=== PATIENT | male | born 1970 | race American Indian/Alaskan Native ===

== ENCOUNTER 2018-03-08 01:12 | Emergency (ER) | payer OTHER ==
[2018-03-08 02:16] LABS: Basophils % (Auto) 0.4 % (0.0-1.8); Eosinophils # (Auto) 0.1 K/mm3 (0.0-0.4); Eosinophils % (Auto) 1.9 % (0.0-4.3); Lymphocytes # (Auto) 2.2 K/mm3 (1.2-5.4); Lymphocytes % (Auto) 37.8 % (13.4-35.0); Mean Corpuscular HGB Conc 31 % (32-34); Mean Corpuscular Volume 81 fl (84-94); Monocytes # (Auto) 0.9 K/mm3 (0.0-0.8); Monocytes % (Auto) 14.8 % (0.0-7.3); Platelet Count 209 K/mm3 (140-440); Red Blood Count 5.19 M/mm3 (3.65-5.03); Red Cell Distribution Width 14.8 % (13.2-15.2)
[2018-03-08 02:21] LABS: Hematocrit 41.9 % (35.5-45.6); Hemoglobin 12.9 gm/dl (11.8-15.2); Mean Corpuscular Hemoglobin 25 pg (28-32)
[2018-03-08 02:36] LABS: BUN/Creatinine Ratio 18; Blood Urea Nitrogen 18 mg/dL (9-20); Calcium 9.1 mg/dL (8.4-10.2); Hemolysis Index 9
[2018-03-08 03:46] LABS: Bilirubin,Urine NEG (Negative); Blood,Urine NEG (Negative); Calcium Oxalate Crystals,Urine 1+; Color,Urine Yellow (Yellow); Mucus,Urine 1+ /HPF
[2018-03-08 03:54] LABS: Amphetamine Screen,Urine PRESUMPTIVE NEGATIVE; Benzodiazepines Screen,Urine PRESUMPTIVE NEGATIVE; Methadone Screen,Urine PRESUMPTIVE NEGATIVE; Opiate Screen,Urine PRESUMPTIVE NEGATIVE
[2018-03-08 04:12] LABS: Cannabinoid Screen,Urine PRESUMPTIVE POSITIVE; Cocaine Screen,Urine PRESUMPTIVE POSITIVE
--- NOTE | 2018-03-08 07:28 | Emergency Department Report ---
ED Psych HPI - General Chief Complaint: Psych Stated Complaint: HOMICIDAL Time Seen by Provider: 03/08/18 06:24 Source: patient Mode of arrival: Ambulatory Limitations: No Limitations - History of Present Illness Initial Comments: 47-year-old male with a past medical history bipolar disorder presents to the house complaining of feeling like hurting people today he resides with an history and additional home. He denies wanting to kill them or himself. He denies hearing voices. He makes to smoke cocaine. He doesn't have any physical complaints other than some nasal congestion. No complaints of fever or pain. Patient admits to noncompliance with his Depakote and Remeron x 1 month. He states he is supposed to take Depakote 1000 mg twice a day Remeron 15 mg daily at bedtime. - Related Data Home Medications Medication Instructions Recorded Confirmed Last Taken Divalproex [Matt YARBROUGH] 1,000 mg PO BID 03/08/18 03/08/18 Unknown Remeron 15 mg PO HS 03/08/18 03/08/18 Unknown Allergies Allergy/AdvReac Type Severity Reaction Status Date / Time No Known Allergies Allergy Verified 03/08/18 01:46 ED Review of Systems ROS: Stated complaint: HOMICIDAL Other details as noted in HPI Comment: All other systems reviewed and negative ED Past Medical Hx - Past Medical History Hx Psychiatric Treatment: Yes (bipolar disorder) - Surgical History Past Surgical History?: No - Social History Smoking Status: Current Some Day Smoker Substance Use Type: Alcohol, Cocaine, Marijuana - Medications Home Medications: Home Medications Medication Instructions Recorded Confirmed Last Taken Type Divalproex [Matt YARBROUGH] 1,000 mg PO BID 03/08/18 03/08/18 Unknown History Remeron 15 mg PO HS 03/08/18 03/08/18 Unknown History ED Physical Exam - General Limitations: No Limitations - Other Other exam information: General: No limitations, patient is alert in no acute distress Head exam: Atraumatic, normocephalic Eyes exam: Normal appearance, pupils equal reactive to light ENT: Moist mucous membrane, normal oropharynx Neck exam: Normal inspection, full range of motion, no meningismus nontender Respiratory exam: Clear to auscultation bilateral, no wheezes, rales, crackles Cardiovascular: Normal rate and rhythm, normal heart sounds Abdomen: Soft, nondistended, and nontender, with normal bowel sounds, no rebound, or guarding Extremity: Full range of motion Back: Normal Inspection, full range of motion, no tenderness Neurologic: Alert, oriented x3, cranial nerves intact, no motor or sensory deficit Psychiatric: Agitated, poor eye contact Skin: Warm, dry, intact ED Course Vital Signs 03/08/18 01:46 Temperature 98.5 F Pulse Rate 77 Respiratory 16 Rate Blood Pressure 117/70 O2 Sat by Pulse 98 Oximetry ED Medical Decision Making - Lab Data Result diagrams: 03/08/18 01:54 03/08/18 01:54 Lab Results 03/08/18 03/08/18 03/08/18 Range/Units 01:54 01:54 01:54 WBC (4.5-11.0) K/mm3 RBC (3.65-5.03) M/mm3 Hgb (11.8-15.2) gm/dl Hct (35.5-45.6) % MCV (84-94) fl MCH (28-32) pg MCHC (32-34) % RDW (13.2-15.2) % Plt Count (140-440) K/mm3 Lymph % (Auto) (13.4-35.0) % [place] % (Auto) (0.0-7.3) % Eos % (Auto) (0.0-4.3) % Baso % (Auto) (0.0-1.8) % Lymph # (1.2-5.4) K/mm3 [place] # (0.0-0.8) K/mm3 Eos # (0.0-0.4) K/mm3 Baso # (0.0-0.1) K/mm3 Seg Neutrophils % (40.0-70.0) % Seg Neutrophils # (1.8-7.7) K/mm3 Sodium 142 (137-145) mmol/L Potassium 3.8 (3.6-5.0) mmol/L Chloride 102.0 (98-107) mmol/L Carbon Dioxide 26 (22-30) mmol/L Anion Gap 18 mmol/L BUN 18 (9-20) mg/dL Creatinine 1.0 (0.8-1.5) mg/dL Estimated GFR > 60 ml/min BUN/Creatinine Ratio 18 % Glucose 120 H (75-100) mg/dL Calcium 9.1 (8.4-10.2) mg/dL Total Creatine Kinase (55-170) units/L Urine Color (Yellow) Urine Turbidity (Clear) Urine pH (5.0-7.0) Ur Specific [place] (1.003-1.030) Urine Protein (Negative) mg/dL Urine Glucose (UA) (Negative) mg/dL Urine Ketones (Negative) mg/dL Urine Blood (Negative) Urine Nitrite (Negative) Urine Bilirubin (Negative) Urine Urobilinogen (<2.0) mg/dL Ur Leukocyte Esterase (Negative) Urine WBC (Auto) (0.0-6.0) /HPF Urine RBC (Auto) (0.0-6.0) /HPF U Epithel Cells (Auto) (0-13.0) /HPF Calcium Oxalate Crystal Urine Mucus /HPF Salicylates < 0.3 L (2.8-20.0) mg/dL Urine Opiates Screen Urine Methadone Screen Acetaminophen < 5.0 L (10.0-30.0) ug/mL Ur Barbiturates Screen Valproic Acid (50-100) ug/mL Ur Phencyclidine Scrn Ur Amphetamines Screen U Benzodiazepines Scrn Urine Cocaine Screen U Marijuana (THC) Screen Drugs of Abuse Note Plasma/Serum Alcohol (0-0.07) % 03/08/18 03/08/18 03/08/18 Range/Units 01:54 01:54 03:27 WBC 5.9 (4.5-11.0) K/mm3 RBC 5.19 H (3.65-5.03) M/mm3 Hgb 12.9 (11.8-15.2) gm/dl Hct 41.9 (35.5-45.6) % MCV 81 L (84-94) fl MCH 25 L (28-32) pg MCHC 31 L (32-34) % RDW 14.8 (13.2-15.2) % Plt Count 209 (140-440) K/mm3 Lymph % (Auto) 37.8 H (13.4-35.0) % [place] % (Auto) 14.8 H (0.0-7.3) % Eos % (Auto) 1.9 (0.0-4.3) % Baso % (Auto) 0.4 (0.0-1.8) % Lymph # 2.2 (1.2-5.4) K/mm3 [place] # 0.9 H (0.0-0.8) K/mm3 Eos # 0.1 (0.0-0.4) K/mm3 Baso # 0.0 (0.0-0.1) K/mm3 Seg Neutrophils % 45.1 (40.0-70.0) % Seg Neutrophils # 2.7 (1.8-7.7) K/mm3 Sodium (137-145) mmol/L Potassium (3.6-5.0) mmol/L Chloride (98-107) mmol/L Carbon Dioxide (22-30) mmol/L Anion Gap mmol/L BUN (9-20) mg/dL Creatinine (0.8-1.5) mg/dL Estimated GFR ml/min BUN/Creatinine Ratio % Glucose (75-100) mg/dL Calcium (8.4-10.2) mg/dL Total Creatine Kinase (55-170) units/L Urine Color Yellow (Yellow) Urine Turbidity Clear (Clear) Urine pH 5.0 (5.0-7.0) Ur Specific [place] 1.034 H (1.003-1.030) Urine Protein 30 mg/dl (Negative) mg/dL Urine Glucose (UA) Neg (Negative) mg/dL Urine Ketones Tr (Negative) mg/dL Urine Blood Neg (Negative) Urine Nitrite Neg (Negative) Urine Bilirubin Neg (Negative) Urine Urobilinogen 4.0 (<2.0) mg/dL Ur Leukocyte Esterase Neg (Negative) Urine WBC (Auto) 3.0 (0.0-6.0) /HPF Urine RBC (Auto) 3.0 (0.0-6.0) /HPF U Epithel Cells (Auto) < 1.0 (0-13.0) /HPF Calcium Oxalate Crystal 1+ Urine Mucus 1+ /HPF Salicylates (2.8-20.0) mg/dL Urine Opiates Screen Urine Methadone Screen Acetaminophen (10.0-30.0) ug/mL Ur Barbiturates Screen Valproic Acid (50-100) ug/mL Ur Phencyclidine Scrn Ur Amphetamines Screen U Benzodiazepines Scrn Urine Cocaine Screen U Marijuana (THC) Screen Drugs of Abuse Note Plasma/Serum Alcohol < 0.01 (0-0.07) % 03/08/18 03/08/18 03/08/18 Range/Units 03:27 06:20 06:20 WBC (4.5-11.0) K/mm3 RBC (3.65-5.03) M/mm3 Hgb (11.8-15.2) gm/dl Hct (35.5-45.6) % MCV (84-94) fl MCH (28-32) pg MCHC (32-34) % RDW (13.2-15.2) % Plt Count (140-440) K/mm3 Lymph % (Auto) (13.4-35.0) % [place] % (Auto) (0.0-7.3) % Eos % (Auto) (0.0-4.3) % Baso % (Auto) (0.0-1.8) % Lymph # (1.2-5.4) K/mm3 [place] # (0.0-0.8) K/mm3 Eos # (0.0-0.4) K/mm3 Baso # (0.0-0.1) K/mm3 Seg Neutrophils % (40.0-70.0) % Seg Neutrophils # (1.8-7.7) K/mm3 Sodium (137-145) mmol/L Potassium (3.6-5.0) mmol/L Chloride (98-107) mmol/L Carbon Dioxide (22-30) mmol/L Anion Gap mmol/L BUN (9-20) mg/dL Creatinine (0.8-1.5) mg/dL Estimated GFR ml/min BUN/Creatinine Ratio % Glucose (75-100) mg/dL Calcium (8.4-10.2) mg/dL Total Creatine Kinase 298 H (55-170) units/L Urine Color (Yellow) Urine Turbidity (Clear) Urine pH (5.0-7.0) Ur Specific [place] (1.003-1.030) Urine Protein (Negative) mg/dL Urine Glucose (UA) (Negative) mg/dL Urine Ketones (Negative) mg/dL Urine Blood (Negative) Urine Nitrite (Negative) Urine Bilirubin (Negative) Urine Urobilinogen (<2.0) mg/dL Ur Leukocyte Esterase (Negative) Urine WBC (Auto) (0.0-6.0) /HPF Urine RBC (Auto) (0.0-6.0) /HPF U Epithel Cells (Auto) (0-13.0) /HPF Calcium Oxalate Crystal Urine Mucus /HPF Salicylates (2.8-20.0) mg/dL Urine Opiates Screen Presumptive negative Urine Methadone Screen Presumptive negative Acetaminophen (10.0-30.0) ug/mL Ur Barbiturates Screen Presumptive negative Valproic Acid 5.2 L (50-100) ug/mL Ur Phencyclidine Scrn Presumptive negative Ur Amphetamines Screen Presumptive negative U Benzodiazepines Scrn Presumptive negative Urine Cocaine Screen Presumptive positive U Marijuana (THC) Screen Presumptive positive Drugs of Abuse Note Disclamer Plasma/Serum Alcohol (0-0.07) % - Medical Decision Making pt medically cleared 1013, transfer form signed pending acceptance most recently reported meds and doses will be continued - Differential Diagnosis bipolar, drug abuse, medication noncompliance Critical Care Time: No Critical care attestation.: If time is entered above; I have spent that time in minutes in the direct care of this critically ill patient, excluding procedure time. ED Disposition Clinical Impression: Bipolar disorder, Noncompliance with medication regimen, At risk for violence to others, Cocaine abuse, Medical clearance for psychiatric admission Disposition: DC/TX-65 PSY HOSP/PSY UNIT Is pt being admited?: No Does the pt Need Aspirin: No Condition: Stable Time of Disposition: 07:28
[2018-03-08] MEDS ORDERED: REMERON PO SCH (22:00)
[2018-03-09 10:36] LABS: Alanine Aminotransferase 19 units/L (7-56); Lipase 22 units/L (13-60)
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
[2018-03-09] MEDS ORDERED: GEODON IM ONE (19:40)
[2018-03-09] MEDS ORDERED: GEODON IM PRN (20:02)
--- NOTE | 2018-03-10 12:17 | Progress Note ---
Subjective - Reason for Consult Consult date: 03/10/18 Reason for consult: Psychiatry Follow-up - Chief Complaint Chief complaint: "I am good" 47-year-old AA male presenting to the ER for feeling like he wan to hurt people at his transitional home. Today the patient is still irritable during the assessment. He stated that he wasn't having a good day. He stated that he does not want to hurt anyone at this time. He denies SI/HI's and AVH's. He denies any side effects of his medication. Per the notes, there were some behavioral disturbance by the patient overnight. Mental Status Exam - Vital signs Last Vital Signs Temp 99.1 F 03/09/18 19:00 Pulse 95 H 03/09/18 19:00 Resp 18 03/09/18 19:00 BP 119/73 03/09/18 19:00 Pulse Ox 97 03/09/18 19:00 - Exam Narrative exam: MSE: Appearance: calm Behavior: regular eye contact Speech: pressured speech Mood: irritable Affect: congruent to mood Thought Process: circumstantial Thought Content: denies SI/HI's and AVH's Motor Activity: sitting up in bed Cognition: A/O x 3 Insight: variable Judgment: variable Assessment and Plan Impression: Unspecified Mood DO. Cannabis Use DO. Substance Use DO (cocaine). Possibly manic. Today the patient is still irritable during the assessment. DDx: Bipolar DO, R/O Substance Induced Mood DO Recommendation/Plan: Continue 1013 with placement to inpatient psy services. Continue home medication Depakote 1000 mg PO BID mood.
[2018-03-10 20:50] VITALS: BP 111/71
[2018-03-10] MEDS ORDERED: WATER FOR INJ (PF) ONE (22:19)
[2018-03-10] MEDS ORDERED: REMERON PO ONE (23:22)
--- NOTE | 2018-03-11 12:22 | Progress Note ---
Subjective - Reason for Consult Consult date: 03/11/18 Reason for consult: Psychiatry Follow-up - Chief Complaint Chief complaint: "I feel much better" 47-year-old AA male presenting to the ER for wanting to hurt people at his transitional home. Today the patient is calm and cooperative during the assessment. He stated that he plan to stay compliant with his medications and appts for outpatient psy services. Per the patient, he stated having an appt with his psychiatrist at [facility] yesterday (03/10/2018). He stated that he is seen at [facility] for all his healthcare needs. He denies SI/HI's and AVH's. The patient stated being homeless. Mental Status Exam - Vital signs Last Vital Signs Temp 98.7 F 03/10/18 20:49 Pulse 74 03/10/18 20:49 Resp 17 03/10/18 20:49 BP 111/71 03/10/18 20:49 Pulse Ox 99 03/10/18 20:49 - Exam Narrative exam: MSE: Appearance: calm, cooperative Behavior: regular eye contact Speech: regular rate and tone Mood: "I feel fine" Affect: congruent to mood Thought Process: logical Thought Content: denies SI/HI's and AVH's Motor Activity: sitting up in bed Cognition: A/O x 3 Insight: appropriate Judgment: appropriate Assessment and Plan Impression: Unspecified Mood DO. Cannabis Use DO. Substance Use DO (cocaine). Celine has resolved. Today the patient is calm and cooperative during the assessment. The patient is no threat to others. DDx: Bipolar DO, R/O Substance Induced Mood DO Recommendation/Plan: The plan was to rescind the patient's 1013 today, but he was transferred to [facility] per an error. Case Mgmt involvement, the patient is homeless. The patient can follow up with [facility] for outpatient psy services. [facility] was informed of the patient's discharge plan.
[2018-03-11] MEDS ORDERED: REMERON PO SCH (22:00)
== END 2018-03-11 12:42 ==
LOC: EEVIPCON 01:12 → ED 01:12
DX: F31.9 Bipolar disorder, unspecified (principal); R45.6 Violent behavior; R09.81 Nasal congestion; F14.10 Cocaine abuse, uncomplicated; F17.200 Nicotine dependence, unspecified, uncomplicated; F12.10 Cannabis abuse, uncomplicated; F39 Unspecified mood [affective] disorder; Z91.14 Patient's other noncompliance with medication regimen; Z79.899 Other long term (current) drug therapy
CPT/HCPCS: 36415; 80048; 80164; 80307; 81001; 82150; 82550; 83690; 84075; 84450; 84460; 85025; 96372; 99285; G0480; J3486; 80320

== ENCOUNTER 2018-05-12 00:09 | Emergency (ER) | payer SELFPAY ==
[2018-05-12 01:10] LABS: Basophils % (Auto) 0.2 % (0.0-1.8); Eosinophils # (Auto) 0.1 K/mm3 (0.0-0.4); Eosinophils % (Auto) 1.5 % (0.0-4.3); Hematocrit 38.7 % (35.5-45.6); Hemoglobin 12.3 gm/dl (11.8-15.2); Lymphocytes # (Auto) 2.6 K/mm3 (1.2-5.4); Lymphocytes % (Auto) 40.3 % (13.4-35.0); Mean Corpuscular HGB Conc 32 % (32-34); Mean Corpuscular Volume 80 fl (84-94); Monocytes # (Auto) 0.7 K/mm3 (0.0-0.8); Monocytes % (Auto) 10.9 % (0.0-7.3); Platelet Count 196 K/mm3 (140-440); Red Blood Count 4.82 M/mm3 (3.65-5.03); Red Cell Distribution Width 14.3 % (13.2-15.2)
[2018-05-12 01:11] LABS: Mean Corpuscular Hemoglobin 26 pg (28-32)
[2018-05-12 01:32] LABS: BUN/Creatinine Ratio 10; Blood Urea Nitrogen 10 mg/dL (9-20); Calcium 8.8 mg/dL (8.4-10.2); Hemolysis Index 4
[2018-05-12] MEDS ORDERED: TYLENOL #3 PO ONE (02:32)
[2018-05-12] MEDS ORDERED: BOOSTRIX IM ONE (02:33)
[2018-05-12] MEDS ORDERED: XYLOCAINE 1%/ EPI 1:100,000 INFILTRATI ONE (02:33)
--- NOTE | 2018-05-12 02:38 | Emergency Department Report ---
HPI - General Chief Complaint: Psych Time Seen by Provider: 05/12/18 02:00 - HPI HPI: The patient is a 47-year-old male with a history of mental health disease, presents for evaluation of mental health. The patient reports 1 week of constant severe depression/hopelessness, and also suicidal ideation. He states that he cut his left forearm earlier today with intent to harm himself. The patient denies fever, headache, unexplained weight loss or weight gain, heat or cold intolerance, skin, hair, or nail changes, neuro deficits, homicidal ideations, or auditory or visual hallucinations. ED Past Medical Hx - Past Medical History Hx Psychiatric Treatment: Yes (bipolar disorder) - Social History Smoking Status: Current Every Day Smoker Substance Use Type: Cocaine, Marijuana - Medications Home Medications: Home Medications Medication Instructions Recorded Confirmed Last Taken Type Remeron 15 mg PO HS 03/08/18 05/12/18 05/10/18 22:00 History Divalproex [Main Johnson] 1,000 mg PO BID #30 tablet 04/25/18 05/12/18 08:00 Rx ED Review of Systems ROS: Stated complaint: LACERATION TO RT ARM Other details as noted in HPI Constitutional: denies: fever ENT: denies: throat or neck pain Respiratory: denies: cough, shortness of breath Cardiovascular: denies: chest pain Endocrine: denies unexplained weight loss or gain Gastrointestinal: denies: abdominal pain, nausea Genitourinary: denies: dysuria Musculoskeletal: denies: leg swelling Skin: reports arm laceration denies: rash Neurological: denies: headache Hematological/Lymphatic: denies: easy bleeding or easy bruising Psych: denies sadness or hopelessness Physical Exam - Physical Exam Vital Signs: Vital Signs 05/12/18 05/12/18 00:41 02:01 Temperature 98.6 F 98.5 F Pulse Rate 60 50 L Respiratory 16 18 Rate Blood Pressure 131/84 Blood Pressure 132/75 [Left] O2 Sat by Pulse 100 100 Oximetry Physical Exam: General: well-nourished, well-developed, no acute distress Head: Normocephalic, atraumatic Eyes: normal sclera ENT: Mucous membranes are pink and moist Neck: trachea midline, neck supple, No neck stiffness, no cervical adenopathy Respiratory: Breath sounds equal bilaterally, no wheezing, rales, or rhonchi Cardio: S1 and S2 present, no murmurs, rubs, gallops, capillary refill is brisk Abdomen: Normoactive bowel sounds, soft abdomen, no rigidity, no guarding or rebound tenderness Musc: No pitting edema Skin: No rash Neuro: no facial drooping, normal speech Psych: Flat affect, depressed mood, poor insight, positive suicidal ideation ED Course Vital Signs 05/12/18 05/12/18 00:41 02:01 Temperature 98.6 F 98.5 F Pulse Rate 60 50 L Respiratory 16 18 Rate Blood Pressure 131/84 Blood Pressure 132/75 [Left] O2 Sat by Pulse 100 100 Oximetry - Laceration /Wound Repair Left Anterior Medial Arm Wound Location: upper extremity Wound Length (cm): 3 Wound's Depth, Shape: superficial Wound Explored: clean Irrigated w/ Saline (ccs): 250 Betadine Prep?: Yes Anesthesia: Lidocaine w/ Epi Volume Anesthetic (ccs): 5 Wound Repaired With: sutures Suture Size/Type: 3:0, nylon Number of Sutures: 3 Layer Closure?: No Sterile Dressing Applied?: Yes ED Medical Decision Making - Lab Data Result diagrams: 05/12/18 01:01 05/12/18 01:01 - Medical Decision Making The patient was seen and examined by myself. The patient is placed on a pvc monitor and continuous pulse ox. On initial evaluation, the patient was found to be in no distress. Labs are obtained. Lab results are grossly unremarkable. Laceration repair is performed. The patient is medically clear. Mental health is consulted. A 1013 is completed. Mental health consult is pending and patient will be evaluated in the am. After eval, the patient will be admitted to a psychiatric facility once bed placement is obtained. Critical care attestation.: If time is entered above; I have spent that time in minutes in the direct care of this critically ill patient, excluding procedure time. ED Disposition Clinical Impression: Suicidal behavior Qualifiers: Attempted self-injury: with attempted self-injury Qualified Code(s): T14.91XA - Suicide attempt, initial encounter Laceration of forearm, left Qualifiers: Encounter type: initial encounter Qualified Code(s): S51.812A - Laceration without foreign body of left forearm, initial encounter Disposition: DC/TX-65 PSY HOSP/PSY UNIT Is pt being admited?: No Does the pt Need Aspirin: No Condition: Fair Time of Disposition: 02:34
[2018-05-12] MEDS ORDERED: TYLENOL PO PRN (02:40)
[2018-05-12] MEDS ORDERED: MILK OF MAGNESIA PO PRN (02:40)
[2018-05-12] MEDS ORDERED: ALUM-MAG HYDROX-SIMETH 200-200-20MG/5ML PO PRN (02:40)
[2018-05-12 02:44] LABS: Bilirubin,Urine SM (Negative); Blood,Urine NEG (Negative); Color,Urine Amber (Yellow); Mucus,Urine 3+ /HPF; RBC,Urine < 1.0 /HPF (0.0-6.0)
[2018-05-12 02:49] LABS: Ictotest,Urine Negative (Negative)
[2018-05-12 03:03] LABS: Amphetamine Screen,Urine PRESUMPTIVE NEGATIVE; Benzodiazepines Screen,Urine PRESUMPTIVE NEGATIVE; Methadone Screen,Urine PRESUMPTIVE NEGATIVE; Opiate Screen,Urine PRESUMPTIVE NEGATIVE
[2018-05-12] MEDS ORDERED: NACL 0.9% 500 ML IR ONE (03:33)
[2018-05-12 03:42] LABS: Cannabinoid Screen,Urine PRESUMPTIVE POSITIVE; Cocaine Screen,Urine PRESUMPTIVE POSITIVE
[2018-05-12] MEDS ORDERED: NACL 0.9% IR ONE (03:54)
[2018-05-12] MEDS ORDERED: TRIPLE ANTIBIOTIC TP ONE ×2 (03:54→03:56)
[2018-05-12 08:56] LABS: Alanine Aminotransferase 13 units/L (7-56); Lipase 10 units/L (13-60)
--- NOTE | 2018-05-12 13:38 | Consultation ---
History of Present Illness - Reason for Consult Consult date: 05/12/18 Reason for consult: Mental Health Evaluation Requesting physician: GEOFF WHITLOCK - Chief Complaint Chief complaint: "I am not good" - History of Present Psychiatric Illness 47-year-old male with a history of mental health disease, presents for evaluation of mental health. The patient reports 1 week of constant severe depression and SI's. This patient is known to me. Today the patient is calm and cooperative during the assessment. He stated that he is dealing with the of his mother so he decided to use recreational drugs. He also cut his left wrist out of "stress" per the patient. He endorses SI's without a suicide plan. He stated that his "biggest issue" is his drug use. He stated that the of his mother has exacerbated his depression. He sated that his sleep has been erratic, but denies a poor appetite. He denies HI's and AVH's. He denies alcohol consumption (etoh). He stated that he tales Depakote and Remeron. Medications and Allergies Allergies Allergy/AdvReac Type Severity Reaction Status Date / Time No Known Allergies Allergy Verified 03/08/18 01:46 Home Medications Medication Instructions Recorded Confirmed Last Taken Type Remeron 15 mg PO HS 03/08/18 05/12/18 05/10/18 22:00 History Divalproex [Main Johnson] 1,000 mg PO BID #30 tablet 04/25/18 05/12/18 08:00 Rx Active Meds: Active Medications Acetaminophen (Tylenol) 650 mg PO Q4HR PRN PRN Reason: Pain MILD(1-3)/Fever >100.5/CALLAHAN Al Hydrox/Mg Hydrox/Simethicone (Alum-Mag Hydrox-Simeth [phone]/5ml) 30 ml PO Q4HR PRN PRN Reason: Indigestion Magnesium Hydroxide (Milk Of Magnesia) 30 ml PO Q12HR PRN PRN Reason: Constipation Past psychiatric history - Past Medical History Past Medical History: No medical history Past Surgical History: No surgical history - past Psychiatric treatment and history psychiatric treatment history: Several inpatient psy settings. Denies a fam psy hx. - Social History Social history: other (Homeless) Mental Status Exam - Vital signs Last Vital Signs Temp 98.2 F 05/12/18 10:00 Pulse 55 L 05/12/18 10:00 Resp 18 05/12/18 10:00 BP 105/66 05/12/18 10:00 Pulse Ox 98 05/12/18 10:00 - Exam Narrative exam: MSE: Appearance: calm, cooperative Behavior: regular eye contact Speech: regular rate and tone Mood: "I don't know" Affect: flat Thought Process: circumstantial Thought Content: denies HI's and AVH's Motor Activity: ambulatory Cognition: A/O x 3 Insight: variable Judgment: variable Results Result Diagrams: 05/12/18 01:01 05/12/18 01:01 Abnormal lab results 05/12/18 05/12/18 05/12/18 Range/Units 01:01 01:01 01:01 MCV (84-94) fl MCH (28-32) pg Lymph % (Auto) (13.4-35.0) % [place] % (Auto) (0.0-7.3) % Potassium 3.5 L (3.6-5.0) mmol/L Glucose 113 H (75-100) mg/dL Lipase (13-60) units/L Ur Specific [place] (1.003-1.030) Salicylates < 0.3 L (2.8-20.0) mg/dL Acetaminophen < 5.0 L (10.0-30.0) ug/mL Valproic Acid (50-100) ug/mL 05/12/18 05/12/18 05/12/18 Range/Units 01:01 02:00 08:23 MCV 80 L (84-94) fl MCH 26 L (28-32) pg Lymph % (Auto) 40.3 H (13.4-35.0) % [place] % (Auto) 10.9 H (0.0-7.3) % Potassium (3.6-5.0) mmol/L Glucose (75-100) mg/dL Lipase 10 L (13-60) units/L Ur Specific [place] 1.033 H (1.003-1.030) Salicylates (2.8-20.0) mg/dL Acetaminophen (10.0-30.0) ug/mL Valproic Acid (50-100) ug/mL 05/12/18 Range/Units 08:23 MCV (84-94) fl MCH (28-32) pg Lymph % (Auto) (13.4-35.0) % [place] % (Auto) (0.0-7.3) % Potassium (3.6-5.0) mmol/L Glucose (75-100) mg/dL Lipase (13-60) units/L Ur Specific [place] (1.003-1.030) Salicylates (2.8-20.0) mg/dL Acetaminophen (10.0-30.0) ug/mL Valproic Acid < 2.8 L (50-100) ug/mL All other labs normal. Assessment and Plan Assessment and plan: Impression: Unspecified Mood DO. Substance Use DO (cocaine). Cannabis Use DO. Today the patient is calm and cooperative during the assessment. The patient cut his left wrist (superficial laceration). The patient endorse SI's. DDx: R/O Bipolar DO, R/O MDD, R/O Substance Induced Mood DO, R/O Personality DO Recommendation/Plan: Continue 1013 with placement to inpatient psy services. Start Benadryl 25 mg PO HS for sleep and Depakote 500 mg PO BID for mood.
[2018-05-12] MEDS: BENADRYL PO SCH (22:31)
--- NOTE | 2018-05-13 14:48 | Progress Note ---
Subjective - Reason for Consult Consult date: 05/13/18 Reason for consult: Psychiatry Follow-up - Chief Complaint Chief complaint: "Kj" 47-year-old male with a history of mental health disease, presents for evaluation of mental health. The patient reports 1 week of constant severe depression and SI's. This patient is known to me. Today the patient is calm and cooperative during the assessment. He stated that he feel "a little better." He sated that he want to be able to deal with the lost of his mother in a better way. He stated that "drug use" isn't the right thing to do. He denies SI/HI's and AVH's. He denies any side effects of his medications. Mental Status Exam - Vital signs Last Vital Signs Temp 98.5 F 05/12/18 21:12 Pulse 56 L 05/12/18 21:12 Resp 18 05/12/18 21:12 BP 108/73 05/12/18 21:12 Pulse Ox 98 05/12/18 21:12 - Exam Narrative exam: MSE: Appearance: calm, cooperative Behavior: regular eye contact Speech: regular rate and tone Mood: "okay" Affect: flat Thought Process: circumstantial Thought Content: denies SI/HI's and AVH's Motor Activity: ambulatory Cognition: A/O x 3 Insight: variable Judgment: variable Assessment and Plan Impression: Unspecified Mood DO. Substance Use DO (cocaine). Cannabis Use DO. Today the patient is calm and cooperative during the assessment. The patient cut his left wrist (superficial laceration). DDx: R/O Bipolar DO, R/O MDD, R/O Substance Induced Mood DO, R/O Personality DO Recommendation/Plan: Reevaluate 1013 uin 24 hours to determine proper dispo. Continue Benadryl 25 mg PO HS for sleep and Depakote 500 mg PO BID for mood.
[2018-05-13] MEDS: BENADRYL PO SCH (22:25)
--- NOTE | 2018-05-14 13:13 | Progress Note ---
Subjective - Reason for Consult Consult date: 05/14/18 Reason for consult: Psychiatric Follow-up Evaluation - Chief Complaint Chief complaint: "I'm doing okay" Patient is a 47-year-old male with a history of mental health disease, presents for evaluation of mental health. The patient reports 1 week of constant severe depression and SI's. This patient is known to me. Today the patient is cooperative but anxious during the assessment. Patient has to be redirected to stay on topic several times throughout the assessment. Per RN patient continues to masturbate uncontrollable. When addressed patient could provide a reason to why and if he would stop if discharged. He reports good sleep and appetite. He denies SI/HI's, AVH's, and delusions. Patient is medication compliant. . He denies any side effects of his medications. Mental Status Exam - Vital signs Last Vital Signs Temp 98.3 F 05/14/18 10:00 Pulse 75 05/14/18 10:00 Resp 18 05/14/18 10:00 BP 113/77 05/14/18 10:00 Pulse Ox 98 05/14/18 10:00 - Exam Narrative exam: Mental Status Exam General Appearance: Causally Dressed-hospital gown, Eye Contact: Intermittent to poor Orientation: Alert and oriented x 4 (person, place, time, and situation) Attitude/Behavior: Cooperative Sensorium: Distracted Psychomotor & Musculoskeletal Activity: Ambulatory Mood: "I'm doing okay" Affect: Circumstantial Speech/Language: Constricted Thought Processes: Circumstantial, tangential Thought Content: Impoverished Perception: Patient denies A/V/T hallucinations Concentration/Attention: Impaired Suicidal Ideations/Plan: Patient denies. Homicidal Ideations/Plan: Patient denies. Judgment: Variable Insight: Variable Assessment and Plan Impression: Unspecified Mood DO. Substance Use DO (cocaine). Cannabis Use DO. Today the patient is cooperative but anxious during the assessment. The patient cut his left wrist (superficial laceration). Thought process in tangential and circumstantial. Patient denies SI/HI's, A/VH's, and delusions. DDx: R/O Bipolar DO, R/O MDD, R/O Substance Induced Mood DO, R/O Personality DO Recommendation/Plan: 1. Continue 1013. Reassess in 24 hours to determine proper disposition. 2. Continue Benadryl 25 mg PO HS for sleep and Depakote 500 mg PO BID for mood. 3. Will continue to monitor sexually inappropriate behavior ( masturbating), mood, sleep, appetite, compliance, and side effects.
[2018-05-14] MEDS ORDERED: GEODON IM ONE (18:00)
[2018-05-14] MEDS: BENADRYL PO SCH (22:22)
--- NOTE | 2018-05-15 12:34 | Progress Note ---
Subjective - Reason for Consult Consult date: 05/15/18 Reason for consult: Psychiatry Follow-up - Chief Complaint Chief complaint: "I'm just upset" Patient is a 47-year-old male with a history of mental health disease, presents for evaluation of mental health. The patient reports 1 week of constant severe depression and SI's. This patient is known to me. Today the patient is cooperative, but irritable during the assessment. He feel like his life is not right at this time. He stated, "I just need help, period." He denies SI/HI's and AVH's. He denies any side effects of his medications. Mental Status Exam - Vital signs Last Vital Signs Temp 97.7 F 05/15/18 02:39 Pulse 51 L 05/15/18 02:39 Resp 18 05/15/18 02:39 BP 114/72 05/15/18 02:39 Pulse Ox 98 05/15/18 02:39 - Exam Narrative exam: MSE: Appearance: cooperative Behavior: regular eye contact Speech: regular rate and tone Mood: irritable Affect: congruent to mood Thought Process: circumstantial Thought Content: denies SI/HI's and AVH's Motor Activity: ambulatory Cognition: A/O x 3 Insight: variable Judgment: variable Assessment and Plan Impression: Unspecified Mood DO. Substance Use DO (cocaine). Cannabis Use DO. Today the patient is cooperative during the assessment. The patient cut his left wrist (superficial laceration). DDx: R/O Bipolar DO, R/O MDD, R/O Substance Induced Mood DO, R/O Personality DO Recommendation/Plan: Reevaluate 1013 uin 24 hours to determine proper dispo. Continue Benadryl 25 mg PO HS for sleep, Depakote 500 mg PO BID for mood, and start Zyprexa 2.5 mg PO HS for mood. Discussed possible metabolic side effects of Zyprexa with the patient.
[2018-05-15] MEDS: BENADRYL PO SCH (22:50)
[2018-05-16 10:26] VITALS: BP 87/56
--- NOTE | 2018-05-16 15:08 | Progress Note ---
Subjective - Reason for Consult Consult date: 05/16/18 Reason for consult: Psychiatry Follow-up - Chief Complaint Chief complaint: "I'm ready to get my life together" Patient is a 47-year-old male with a history of mental health disease, presents for evaluation of mental health. The patient reports 1 week of constant severe depression and SI's. This patient is known to me. Today the patient is calm and cooperative during the assessment. He stated that he feel much better "mentally " and look forward to be discharged. He stated that he will follow up with outpatient psy/rehab services. He denies SI/HI's and AVH's. He denies any side effects of his medications. Per the no behavioral disturbances overnight. Mental Status Exam - Vital signs Last Vital Signs Temp 98.0 F 05/16/18 10:25 Pulse 74 05/16/18 10:25 Resp 16 05/16/18 10:25 BP 87/56 05/16/18 10:25 Pulse Ox 100 05/16/18 10:25 - Exam Narrative exam: MSE: Appearance: calm, cooperative Behavior: regular eye contact Speech: regular rate and tone Mood: "better" Affect: congruent to mood Thought Process: linear Thought Content: denies SI/HI's and AVH's Motor Activity: ambulatory Cognition: A/O x 3 Insight: appropriate Judgment: appropriate Assessment and Plan Impression: Unspecified Mood DO. Substance Use DO (cocaine). Cannabis Use DO. Today the patient is cooperative during the assessment. The patient is no threat to self. DDx: R/O Bipolar DO, R/O MDD, R/O Substance Induced Mood DO, R/O Personality DO I. This screening and assessment is based on information collected from the following sources: II. SUICIDE RISK SCREENING (within last 30 days): A.) Suicidal thoughts/behaviors: Yes SUICIDE RISK ASSESSMENT III. FACTORS THAT INCREASE RISK: A.) Demographic and Substance Use Factors: Yes (cocaine) B.) Current/Recent Factors (within past 3 months): Psychosocial/Environmental Factors: of mother Physical Illness: None Cognitive/Psychological Factors: None C.) Historical Factors: None D.) Diagnostic/Symptom/Treatment Factors: None E.) Acute Risk Factor Severity (DESC; MILD/MOD/SEVERE): Mild Other factors for this individual that increase risk: None IV. FACTORS THAT DECREASE RISK: Resilience/Protective Factors: Patient want to decrease his stress Other factors for this individual that decrease risk: Patient denies a desire to harm self V. Clinician's Formulation of Risk and Determination of level of Care: This is a [id number] male who cut himself prior to coming to the ER. He cut himself because he was overwhelmed with the of his mother. He stated that he could have handled his crisis in a better way. He stated that his actions was unsafe. He stated that he will follow-up with outpatient psy/rehab services once discharged. The patient is not impaired by substance. He is able to take care of his ADLs and is not at imminent risk of harm to self or others. Consequently, it is the opinion of the treatment team that the patient is at low risk of suicide and does not meet criteria to continue an involuntary psychiatric hold. Estimation of Imminent Risk: Low due to the above explanation. Determination of Level of Care based on Suicide Risk: Outpatient follow-up. Narrative description of clinical reasoning. Given the fact that the patient is willing to engage in outpatient services care, it is reasonable to expect that the patient will seek services. He is regretful of the decision prior to her admission to the hospital. At this current time, he is not impulsive and does not have any risk factors to increase the likelihood of her impulsive behavior. Therefore, it is reasonable to expect that the patient will engage in outpatient /rehab services which will reduce further unsafe behaviors. . Plan and Interventions based on Suicide Risk: This patient will likely be stepped down to an outpatient mental health center in the community upon discharge and follow-up within 7 days of his discharge from the hospital. VII. Discharge/After Hours Support Plan: Patient can return back to the ER, call 911 or crisis line if symptoms of depression, anxiety, suicidality return. Recommendation/Plan: Rescind 1013. Continue Depakote 500 mg PO BID for mood and Zyprexa 2.5 mg PO HS for mood. Discussed possible metabolic side effects of Zyprexa with the patient. Discussed generalized coping skill with the patient. Completed a safety contract with the patient. The patient can follow up with [facility] for outpatient psy/rehab services.
--- NOTE | 2018-05-16 16:45 | Emergency Department Report ---
Blank Doc - Documentation Documentation: Mr. Gaspar has been receiving psychiatric care in the ER for the past 5 days. He has been followed closely by psychiatric team who rescinded 1013 involuntary hold. I reviewed the diagnostics and psychiatric recommendations. I provided discharge orders and written instructions.
== END 2018-05-16 17:15 | disposition home or self-care (01) ==
LOC: ED 00:09 → EEVIPCON 00:09 → ED 05-16 17:15
DX: S51.812A Laceration without foreign body of left forearm, initial encounter (principal); F39 Unspecified mood [affective] disorder; F12.10 Cannabis abuse, uncomplicated; F17.200 Nicotine dependence, unspecified, uncomplicated; F14.10 Cocaine abuse, uncomplicated; F31.9 Bipolar disorder, unspecified
CPT/HCPCS: 12002; 36415; 80048; 80164; 80307; 81001; 82150; 83690; 84075; 84450; 84460; 85025; 90471; 90715; 99284; G0480; J3486; 80320; A6250

== ENCOUNTER 2019-12-14 23:23 | Emergency (ER) | payer SELFPAY ==
[2019-12-15 00:08] LABS: Basophils % (Auto) 0.3 % (0.0-1.8); Eosinophils % (Auto) 0.6 % (0.0-4.3); Hemoglobin 12.7 gm/dl (11.8-15.2); Lymphocytes # (Auto) 1.5 K/mm3 (1.2-5.4); Lymphocytes % (Auto) 27.2 % (13.4-35.0); Mean Corpuscular HGB Conc 33 % (32-34); Mean Corpuscular Volume 80 fl (84-94); Monocytes # (Auto) 0.7 K/mm3 (0.0-0.8); Monocytes % (Auto) 12.4 % (0.0-7.3); Platelet Count 201 K/mm3 (140-440); Red Blood Count 4.77 M/mm3 (3.65-5.03); Red Cell Distribution Width 12.5 % (13.2-15.2)
[2019-12-15 00:10] LABS: BUN/Creatinine Ratio 15; Blood Urea Nitrogen 18 mg/dL (9-20); Calcium 8.7 mg/dL (8.4-10.2); Hemolysis Index 17
--- NOTE | 2019-12-15 00:22 | Emergency Department Report ---
<EUSEBIA SANTO - Last Filed: 12/15/19 16:28> ED Psych HPI - General Chief Complaint: Psych Stated Complaint: MH Time Seen by Provider: 12/15/19 00:13 Source: patient Mode of arrival: Ambulatory - History of Present Illness Initial Comments: Patient is 49 years old male with history of bipolar disorder. Patient presented to the ER stating that his very depressed and he is thinking about killing himself. Patient does not have a specific plan. Patient also stated that he is having some homicidal ideation too. Patient denied any auditory or visual hallucination. MD Complaint: suicidal ideation, feels depressed -: week(s) Associated Psychiatric Symptoms: depression, suicidal ideation, homicidal ideation History of same: Yes Quality: constant Associated Symptoms: denies other symptoms If Self Harm: admits thoughts of - Related Data Home Medications Medication Instructions Recorded Confirmed Last Taken Remeron 15 mg PO HS 03/08/18 05/12/18 05/10/18 22:00 Previous Rx's Medication Instructions Recorded Last Taken Type Divalproex Dr [Main Johnson] 1,000 mg PO BID #30 tablet 04/25/18 05/11/18 08:00 Rx Divalproex Sodium [Depakote] 500 mg PO BID #60 tablet.dr 07/03/18 Unknown Rx Mirtazapine [Remeron] 15 mg PO QHS #30 tab.rapdis 07/03/[address] [DepJazminTE DR] 500 mg PO BID #60 tablet 12/16/19 Unknown Rx Mirtazapine [Remeron 30mg Rapdis] 30 mg PO QHS #30 tab.rapdis 12/16/19 Unknown Rx Allergies Allergy/AdvReac Type Severity Reaction Status Date / Time pork derived (porcine) Allergy Itching Verified 12/14/19 23:25 ED Review of Systems Comment: All other systems reviewed and negative Constitutional: denies: chills, fever Cardiovascular: denies: chest pain Gastrointestinal: denies: abdominal pain, nausea, vomiting Musculoskeletal: denies: back pain Neurological: denies: headache, weakness Psychiatric: depression, homicidal thoughts, suicidal thoughts. denies: auditory hallucinations, visual hallucinations ED Past Medical Hx - Past Medical History Previous Medical History?: Yes Hx Psychiatric Treatment: Yes (bipolar disorder,schizophrenic) - Social History Smoking Status: Current Every Day Smoker - Medications Home Medications: Home Medications Medication Instructions Recorded Confirmed Last Taken Type Remeron 15 mg PO HS 03/08/18 05/12/18 05/10/18 22:[address] [Depakote Dr] 1,000 mg PO BID #30 tablet 04/25/18 05/12/18 0 05/11/18 08:00 Rx Divalproex Sodium [Depakote] 500 mg PO BID #60 tablet.dr 07/03/18 Unknown Rx Mirtazapine [Remeron] 15 mg PO QHS #30 tab.rapdis 07/03/[address] [DepaKOTE DR] 500 mg PO BID #60 tablet 12/16/19 Unknown Rx Mirtazapine [Remeron 30mg Rapdis] 30 mg PO QHS #30 tab.rapdis 12/16/19 Unknown Rx ED Physical Exam - General Limitations: No Limitations General appearance: alert, in no apparent distress - Head Head exam: Present: atraumatic, normocephalic, normal inspection - Eye Eye exam: Present: normal appearance - ENT ENT exam: Present: normal exam, normal orophraynx, mucous membranes moist - Neck Neck exam: Present: normal inspection, full ROM. Absent: tenderness, meningismus, lymphadenopathy, thyromegaly - Respiratory Respiratory exam: Present: normal lung sounds bilaterally - Cardiovascular Cardiovascular Exam: Present: regular rate, normal rhythm, normal heart sounds - GI/Abdominal GI/Abdominal exam: Present: soft, normal bowel sounds. Absent: distended, tenderness, guarding, rebound, rigid, mass, bruit, pulsatile mass, hernia - Extremities Exam Extremities exam: Present: normal inspection, full ROM, normal capillary refill. Absent: tenderness, pedal edema, joint swelling, calf tenderness - Back Exam Back exam: Present: normal inspection, full ROM. Absent: CVA tenderness (R), CVA tenderness (L) - Neurological Exam Neurological exam: Present: alert, oriented X3, CN II-XII intact, normal gait, reflexes normal. Absent: motor sensory deficit - Psychiatric Psychiatric exam: Present: depressed, homicidal ideation, suicidal ideation. Absent: agitated, anxious, flat affect, manic - Skin Skin exam: Present: warm, intact, normal color ED Medical Decision Making - Lab Data Result diagrams: 12/14/19 23:36 04/27/20 23:36 ED Disposition Clinical Impression: Bipolar disorder, Suicidal ideation, Cocaine abuse, Medication refill Disposition: DC-01 TO HOME OR SELFCARE Condition: Stable Instructions: Cocaine Abuse (ED), Bipolar Disorder (ED), Suicide Prevention for Adults (ED) Additional Instructions: Take the medication as prescribed. Follow-up with your doctor or doctor/clinic provided. Follow-up with the resources provided by mental health. Return if symptoms worsen as indicated by your discharge instructions. Professional and Agency Contacts To help [facility](11/03) [place] Crisis Line: Suicide Prevention Line: Crisis Text Line: Text START to [phone] Emergency: 911 Outpatient COMMUNITY Behavioral Health Resources: ALEX: [facility] [address], [place] [address] [facility] - [address] [place] [address] Saturday thru Saturday - 8am - 5pm [facility] Address: [address] [place] [address] Saturday thru Saturday- 7am-2pm [facility] Address: [address] [place] [address] Saturday thru Saturday: 8:30AM-5PM Prescriptions: Divalproex Dr [DepaKOTE DR] 500 mg PO BID #60 tablet Mirtazapine [Remeron 30mg Rapdis] 30 mg PO QHS #30 tab.rapdis Referrals: PRIMARY CARE, [Primary Care Provider[facility] <GEOVANI KHANNA - Last Filed: 12/16/19 15:02> ED Review of Systems ROS: Stated complaint: MH Other details as noted in HPI ED Course Vital Signs 12/14/19 12/15/19 12/15/19 23:25 00:27 07:36 Temperature 98.3 F 98.4 F 97.8 F Pulse Rate 90 60 70 Respiratory 18 18 20 Rate Blood Pressure 139/82 Blood Pressure 139/82 102/63 [Left] O2 Sat by Pulse 98 99 98 Oximetry 12/15/19 12/16/19 12/16/19 20:10 01:48 05:00 Temperature 99.2 F 99.1 F 98.3 F Pulse Rate 71 67 Respiratory 16 16 Rate Blood Pressure Blood Pressure 116/81 104/71 [Left] O2 Sat by Pulse 98 95 Oximetry 12/16/19 07:45 Temperature 99 F Pulse Rate 77 Respiratory 16 Rate Blood Pressure Blood Pressure 112/76 [Left] O2 Sat by Pulse 98 Oximetry ED Medical Decision Making - Lab Data Result diagrams: 12/14/19 23:36 12/14/19 23:36 - Medical Decision Making pt cleared by [facility] Critical care attestation.: If time is entered above; I have spent that time in minutes in the direct care of this critically ill patient, excluding procedure time. ED Disposition Is pt being admited?: No Does the pt Need Aspirin: No Time of Disposition: 15:00
[2019-12-15 01:55] LABS: Amphetamine Screen,Urine PRESUMPTIVE NEGATIVE; Benzodiazepines Screen,Urine PRESUMPTIVE NEGATIVE; Methadone Screen,Urine PRESUMPTIVE NEGATIVE; Opiate Screen,Urine PRESUMPTIVE NEGATIVE
[2019-12-15 02:06] LABS: Bacteria,Urine 1+ /HPF (Negative); Bilirubin,Urine NEG (Negative); Blood,Urine NEG (Negative); Color,Urine Yellow (Yellow); Mucus,Urine 3+ /HPF; Protein,Urine <15 mg/dL mg/dL (Negative)
[2019-12-15 02:41] LABS: Cannabinoid Screen,Urine PRESUMPTIVE POSITIVE; Cocaine Screen,Urine PRESUMPTIVE POSITIVE
[2019-12-16] MEDS ORDERED: ONDANSETRON 4 MG ODT TAB PO ONE (01:37)
--- NOTE | 2019-12-16 13:46 | Consultation ---
History of Present Illness - Reason for Consult Consult date: 12/16/19 Reason for consult: SI/HI - History of Present Psychiatric Illness The patient's medical record was reviewed at the patient's progress was discussed with the nursing staff. The nurse states the patient call her a fat bih. She says before that he was fine and did not cause any problems. Reginald Gaspar is a 49y/o male patient who states he came to the ER because he "needed refills on his meds." He is a/o x 3. He is easily irritated, but cooperative. He says he "initially told the people I was suicidal. I really just need my meds." He then says, "I'm not suicidal now and I wasn't suicidal then." He describes his mood as "good, just need my meds." The patient admits to "cocaine and weed" use. He says he has a history of "bipolar" and takes "depakote 500mg twice daily and remeron 30 at night." He says he hasn't seen his psychiatrist in "some months." He denies hallucinations of any kind. PAST PSYCHIATRIC HISTORY: Diagnoses: Bipolar Suicide attempts or Self-harm behavior: "once when he was in [facility]" Prior psychiatric hospitalizations: Denies Substance Abuse history: Cocaine, THC Previous psychiatric medications tried: Depakote, remeron Outpatient treatment: months PAST MEDICAL HISTORY: None reported Family Psychiatric History: None reported SOCIAL HISTORY Marital Status: Single Living Arrangements: Lives with friends Employment Status: Unemployed Access to guns/weapons: Denies Education: 12th grade History of Abuse: drugs Legal History: Yes REVIEW OF SYSTEMS Constitutional: Negative for weight loss ENT: Negative for stridor Respiratory: Negative for cough or hemoptysis All other systems reviewed and are negative MENTAL STATUS EXAMINATION General Appearance: Dressed appropriately Behavior: Irritable. Cooperative. Good eye contact Mood: Good Affect: Congruent with stated mood Speech: Normal tone and pace Thought Process: Goal directed Thought Content: Suicidal Ideation: Denies Homicidal Ideation: Denies Hallucinations: Denies Delusions: None elicited Insight and Judgment: Limited Memory/Cognition: Limited Assessment Substance Induced Mood Disorder Plan Medications Depakote DR 500mg BID Remeron 30mg po hs Sitter: Defer to primary Medical: Per primary Disposition: The patient does note meets the criteria for acute inpatient psychiatric treatment. He may discharge home once medically clear. The patient understands that if suicidal or self harm thoughts or any feelings of endangerment are to arise he is to seek immediate assistance including but not limited to the crisis hotline, 911 or/and the ER. The patient is to abstain from all illicit drugs and alcohol. He should follow up with primary or out patient psychiatry in 7 to 14 days. The accountant supervisor to give the patient recourses for out patient and drug rehabilitation programs. The treatment plan and medications, including benefits and side effects was discussed with the patient. He verbalizes understanding. Thank you for this consult. Medications and Allergies Allergies Allergy/AdvReac Type Severity Reaction Status Date / Time pork derived (porcine) Allergy Itching Verified 12/14/19 23:25 Home Medications Medication Instructions Recorded Confirmed Last Taken Type Remeron 15 mg PO HS 03/08/18 05/12/18 05/10/18 22:[address] [Main Johnson] 1,000 mg PO BID #30 tablet 04/25/18 05/12/18 05/11/18 08:00 Rx Divalproex Sodium [Depakote] 500 mg PO BID #60 tablet. 07/03/18 Unknown Rx Mirtazapine [Remeron] 15 mg PO QHS #30 tab.rapdis 07/03/[address] [Main JOHNSON] 500 mg PO BID #60 tablet 12/16/19 Unknown Rx Mirtazapine [Remeron 30mg Rapdis] 30 mg PO QHS #30 tab.rapdis 12/16/19 Unknown Rx Mental Status Exam - Vital signs Last Vital Signs Temp 99 F 12/16/19 07:45 Pulse 77 12/16/19 07:45 Resp 16 12/16/19 07:45 BP 112/76 12/16/19 07:45 Pulse Ox 98 12/16/19 07:45 Results Result Diagrams: 12/14/19 23:36 12/14/19 23:36 All other labs normal.
[2019-12-16 15:37] VITALS: BP 100/66
== END 2019-12-16 15:36 | disposition home or self-care (01) ==
LOC: EEVIPCON 23:23 → ED 23:23
DX: F31.9 Bipolar disorder, unspecified (principal); Z76.0 Encounter for issue of repeat prescription; Z88.8 Allergy status to other drugs, medicaments and biological substances; Z79.899 Other long term (current) drug therapy
CPT/HCPCS: 36415; 80048; 80307; 80320; 81001; 85025; G0480; Q0162